=== PATIENT | female | born 1970 | race Caucasian/White ===

== ENCOUNTER → 2016-08-14 | Outpatient (CLI) | payer BC ==
[~2016-08-14] VITALS: Ht 168.9 cm; Wt 94.3 kg
[~2016-08-14] MED LIST: AMIT10TA PO; AVIATAB PO; CALC600T57 PO; CALTTAB5 PO; FLON1SPR; LIDOCAINE 2% INJ 100 MG/5 ML SDV (FOR ANES.) As Ordered ONE; NS 1,000 ML IV SCH; PREV30CA11 PO; PROPOFOL 200 MG/20 ML VIAL As Ordered ONE; SIMV40TA2 PO; WOMETAB4 PO
--- NOTE | 2016-08-14 15:49 | ROOR ---
Patient Name: Reanna Coronel Procedure Date: 08/14/2016 3:32 PM Date of : 1970 Age: 46 Room: [facility] Gender: Female Note Status: Finalized Procedure: Upper GI endoscopy Indications: Oral phase dysphagia, Heartburn- significantly improved on BID PPI. (often forgets to take second dose in evening) Providers: Ky PRADO MD Referring MD: KHUSHBU GILES MD Requesting Provider: Medicines: Monitored Anesthesia Care Complications: No immediate complications. Estimated blood loss: None. Procedure: Pre-Anesthesia Assessment: - The heart rate, respiratory rate, oxygen saturations, blood pressure, adequacy of pulmonary ventilation, and response to care were monitored throughout the procedure. The Endoscope was introduced through the mouth, and advanced to the second part of duodenum. The upper GI endoscopy was accomplished without difficulty. The patient tolerated the procedure well. Findings: The esophagus was normal. The stomach was normal. The examined duodenum was normal. No endoscopic abnormality was evident in the esophagus to explain the patient's complaint of dysphagia. This was biopsied with a cold forceps for evaluation of eosinophilic esophagitis. Impression: - Normal esophagus. - Normal stomach. - Normal examined duodenum. - No endoscopic esophageal abnormality to explain patient's dysphagia. Biopsied. Recommendation: - Use Prevacid (lansoprazole) 30 mg PO BID. - Telephone endoscopist for pathology results in 2 weeks. Ky Prado MD Ky PRADO MD 08/14/2016 3:49:19 PM This report has been signed electronically. Number of Addenda: 0 Note Initiated On: 08/14/2016 3:32 PM Estimated Blood Loss: Estimated blood loss: none. Estimated blood loss: none.
[2016-08-14 16:25] VITALS: BP 132/78
== END ==
LOC: M OPP 11:59
PROVIDERS: ATTEND Internal Medicine Gastroenterology
DX: R12 Heartburn (principal); R13.11 Dysphagia, oral phase; E78.5 Hyperlipidemia, unspecified; F41.9 Anxiety disorder, unspecified; Z79.899 Other long term (current) drug therapy; Z88.1 Allergy status to other antibiotic agents; Z88.8 Allergy status to other drugs, medicaments and biological substances; Z91.013 Allergy to seafood

== ENCOUNTER → 2016-08-21 | Outpatient (CLI) | payer BC ==
[~2016-08-21] MED LIST changes: +E-Z-GAS II EFFERVESCENT PACKET (SODIUM BICARB./CITRIC ACID/SIMETHICONE) As Ordered ONE; +E-Z-HD 98% w/w 340GM SUSP BTL As Ordered ONE; -LIDOCAINE 2% INJ 100 MG/5 ML SDV (FOR ANES.) As Ordered ONE; -NS 1,000 ML IV SCH; -PROPOFOL 200 MG/20 ML VIAL As Ordered ONE
--- NOTE | 2016-08-21 17:21 | REP ---
ESOPHAGRAM, AIR CONTRAST: The procedure was performed under the direct supervision of Dr. Fernandes. The images were reviewed with Dr. Fernandes. A single view PA chest x-ray was submitted as a credit cashier film. The superior mediastinal structures are midline. The heart size is within normal limits. The lungs are clear. There is a slight dextroscoliosis. Liquid barium and gas-producing granules were given in the erect position as well as liquid barium in the prone oblique positions in order to perform a double-contrast esophagram examination. The oral and pharyngeal stage of deglutition are unremarkable. Esophageal transport is prompt and efficient and there is no esophagitis, stricture, mucosal ring, or hiatal hernia. Gastroesophageal reflux is not demonstrated on this examination. IMPRESSION: Essentially unremarkable double contrast esophagram examination. 31 seconds of fluoroscopic time was utilized for this procedure. Reviewed by SPENCER Hooper 08/22/2016 04:45 PEdited and Signed by Guero Fernandes MD 08/22/2016 05:10 P
== END ==
LOC: M RAD 08:38
PROVIDERS: ATTEND Physician Assistant Medical
DX: R13.10 Dysphagia, unspecified (principal); K21.9 Gastro-esophageal reflux disease without esophagitis

== ENCOUNTER → 2021-04-15 | Outpatient (REF) | payer OTHER, BC ==
[~2021-04-15] MED LIST changes: -AMIT10TA PO; +AMIT10TA7 PO; -E-Z-GAS II EFFERVESCENT PACKET (SODIUM BICARB./CITRIC ACID/SIMETHICONE) As Ordered ONE; -E-Z-HD 98% w/w 340GM SUSP BTL As Ordered ONE; +PREV1CAP PO; -PREV30CA11 PO; -SIMV40TA2 PO; +SIMV40TA20 PO
[2021-04-15 13:27] LABS: APPEARANCE, URINE CLEAR (CLEAR); BACTERIA, URINE AUTO NEGATIVE (NEGATIVE); BILIRUBIN, URINE AUTO NEGATIVE (NEGATIVE); BLOOD, URINE BLOOD 1+ (NEGATIVE); COLOR, URINE COLORLESS (YELLOW); GLUCOSE, URINE (UA) AUTO NEGATIVE (NEGATIVE); KETONE, URINE AUTO NEGATIVE (NEGATIVE); LEUKOCYTE ESTERASE, URINE AUTO NEGATIVE (NEGATIVE); NITRITE, URINE AUTO NEGATIVE (NEGATIVE); PROTEIN, URINE AUTO NEGATIVE (NEGATIVE); RBC, URINE AUTO 0 /HPF (0-3); SPECIFIC GRAVITY URINE AUTO 1.001 (1.002-1.035); SQUAMOUS EPITHELIAL CELL UR AU 0 /HPF (0-6); UROBILINOGEN, URINE AUTO 0.2 mg/dL (0.0-2.0); WBC, URINE AUTO 0 /HPF (0-3)
== END ==
LOC: M SMT 12:56
PROVIDERS: ATTEND Nurse Practitioner Women's Health
DX: R31.29 Other microscopic hematuria (principal)

== ENCOUNTER 2022-11-14 11:00 | Day surgery (SDC) | payer OTHER ==
[~2022-11-14] VITALS: Ht 167.6 cm; Wt 92.6 kg
[~2022-11-14 11:00] MED LIST changes: +AZEL1SPR3 INH; +CETI-24 PO; +LEVO0.1T PO; +LISI5TAB11 PO; +NS 1,000 ML IV ONE; +SAXE1INJ SQ; +THERTAB52 PO
[2022-11-14] MEDS ORDERED: propofoL 500 MG/50 ML VIAL As Ordered ONE (13:22)
[2022-11-14] MEDS ORDERED: LIDOCAINE 2% 100MG/5ML SDV (FOR ANES.) As Ordered ONE (13:22)
[2022-11-14] MEDS ORDERED: fentaNYL 100 MCG/2 ML INJECTION As Ordered ONE (13:22)
[2022-11-14 13:40] VITALS: TEMP 97.9
[2022-11-14 13:56] VITALS: BP 122/78; O2SAT 95
== END 2022-11-14 13:58 | disposition home or self-care (01) ==
LOC: M OPP 11:00
PROVIDERS: ATTEND Internal Medicine Gastroenterology
DX: R13.14 Dysphagia, pharyngoesophageal phase (principal); K22.89 Other specified disease of esophagus; Z79.02 Long term (current) use of antithrombotics/antiplatelets; Z79.899 Other long term (current) drug therapy; Z88.1 Allergy status to other antibiotic agents; Z88.8 Allergy status to other drugs, medicaments and biological substances; Z91.013 Allergy to seafood
CPT/HCPCS: 43239; 43249; 88305; J3010

== ENCOUNTER 2024-08-01 09:20 | Day surgery (SDC) | payer OTHER ==
[~2024-08-01] VITALS: Ht 167.6 cm; Wt 100.7 kg
[~2024-08-01 09:20] MED LIST changes: +AMIT10TA11 PO; -AMIT10TA7 PO; +BUDE10.3; -NS 1,000 ML IV ONE; +PANT40TA29 PO; +SIMV20TA22 PO
[2024-08-01] MEDS ORDERED: LIDOCAINE 2% 100 MG/5 ML SDV (FOR ANES.) As Ordered ONE (10:52)
[2024-08-01] MEDS ORDERED: GLYCOPYRROLATE INJ 0.2 MG/ML 2 ML VIAL As Ordered ONE (10:52)
[2024-08-01 11:53] VITALS: TEMP 97
[2024-08-01 12:15] VITALS: BP 118/88; O2SAT 97
== END 2024-12-17 12:52 | disposition home or self-care (01) ==
LOC: M OPP 09:20
PROVIDERS: ATTEND Internal Medicine Gastroenterology
DX: Z12.11 Encounter for screening for malignant neoplasm of colon (principal); K63.5 Polyp of colon; K21.9 Gastro-esophageal reflux disease without esophagitis; R12 Heartburn; Z88.1 Allergy status to other antibiotic agents; Z88.8 Allergy status to other drugs, medicaments and biological substances; Z91.013 Allergy to seafood; Z79.51 Long term (current) use of inhaled steroids; Z79.899 Other long term (current) drug therapy; J45.909 Unspecified asthma, uncomplicated
CPT/HCPCS: 43239; 45385; 88305; J1596; J3010